=== PATIENT | male | born 1985 | race Caucasian/White ===

== ENCOUNTER 2020-08-01 22:51 | Emergency (ER) | payer OTHER ==
[2020-08-01] MEDS ORDERED: Lidocaine 1% PF 5 ML VIAL ONE (23:10)
[2020-08-01] MEDS ORDERED: Adacel (T-DAP) 0.5 ML SYRINGE ONE (23:18)
[2020-08-01] MEDS ORDERED: Bacitracin 1 PK ONE (23:33)
== END 2020-08-01 23:47 | disposition home or self-care (01) ==
LOC: BURERS 22:51
DX: S51.812A Laceration without foreign body of left forearm, initial encounter (principal); Z23 Encounter for immunization; W22.8XXA Striking against or struck by other objects, initial encounter; Y92.008 Other place in unspecified non-institutional (private) residence as the place of occurrence of the external cause
CPT/HCPCS: 12001; 90471; 90715